=== PATIENT | male | born 1995 | race Caucasian/White ===

== ENCOUNTER 2017-07-23 00:55 | Emergency (ER) | payer OTHER ==
[~2017-07-23] VITALS: Ht 185.4 cm; Wt 84.0 kg
[2017-07-23 07:03] VITALS: BP 126/77
== END 2017-07-23 07:17 | disposition home or self-care (01) ==
LOC: ED 07:00
DX: F10.120 Alcohol abuse with intoxication, uncomplicated (principal)
CPT/HCPCS: 99283